=== PATIENT | male | born 1960 | race Caucasian/White ===

== ENCOUNTER 2017-06-30 11:38 | Emergency (ER) | payer OTHER ==
[~2017-06-30] VITALS: Ht 175.3 cm; Wt 70.0 kg
[~2017-06-30 11:38] MED LIST: ASPI81CH3 PO; BUPR-197 PO; DICL75 PO; FLUO-1 PO; LIDO5DIS35 TD; ROSU40 PO; SERO25TA PO; TRAM50 PO
[2017-06-30 12:02] VITALS: BP 175/100; PULSE 88; RESP 18; TEMP 98.1; O2SAT 98
[2017-06-30] MEDS ORDERED: PROZ40CA PO (12:07)
[2017-06-30] MEDS ORDERED: ROSU10 PO (12:07)
[2017-06-30] MEDS ORDERED: ASPI-516 CHEW (12:07)
[2017-06-30] MEDS ORDERED: SERO400T PO (12:07)
[2017-06-30 12:08] VITALS: BP 175/100; PULSE 88; RESP 18; TEMP 98.1; O2SAT 98
[2017-06-30] MEDS ORDERED: HALOPERIDOL LACTATE 5 MG/ML AMP IM ONE (12:15)
[2017-06-30] MEDS ORDERED: diphenhydrAMINE HCL 50 MG/ML VIAL IM ONE (12:15)
[2017-06-30] MEDS ORDERED: LORazepam 2 MG/ML VIAL IM ONE (12:15)
--- NOTE | 2017-06-30 12:17 | PD ---
HPI Chief Complaint: Psychiatric Symptoms Time Seen by Provider: 12:00 Travel History International Travel<30 days: No Contact w/Intl Traveler<30days: No Traveled to known affect area: No History of Present Illness HPI 56-year-old male brought in under the Vigil act for psychiatric symptoms. Patient states that he was recently in [facility] helping [employer] on his missiles with Darien Huffman. He denies suicidal or homicidal ideation. He states he has been taking his medication. He denies specific drug use. He denies medical problems this time. Patient has no known drug allergies. PFSH Past Medical History Hx Anticoagulant Therapy: Yes Bipolar Disorder: Yes (AND PARANOIA) Anxiety: Yes Depression: Yes High Cholesterol: Yes (BORDERLINE) Diabetes: No Diminished Hearing: No Psychiatric: Yes Past Surgical History Other Surgery: Yes (RIGHT KNEE ARTHOSCOPY) Family History Family Hypercholesterolemia: Yes Social History Alcohol Use: No Tobacco Use: Yes (1PPD) Substance Use: No Allergies-Medications (Allergen,Severity, Reaction): Coded Allergies: No Known Allergies (Unverified , 06/30/17) Reported Meds & Prescriptions Reported Meds & Active Scripts Active Reported Aspirin 81 Mg Chew 81 Mg CHEW DAILY Prozac (Fluoxetine HCl) 40 Mg Cap 40 Mg PO DAILY Crestor (Rosuvastatin Calcium) 10 Mg Tab 10 Mg PO DAILY Seroquel (Quetiapine Fumarate) 400 Mg Tab 400 Mg PO HS Review of Systems ROS Limitations: Psychotic General / Constitutional: No: Fever Eyes: No: Visual changes HENT: No: Headaches Cardiovascular: No: Chest Pain or Discomfort Respiratory: No: Shortness of Breath Gastrointestinal: No: Abdominal Pain Genitourinary: No: Dysuria Musculoskeletal: No: Pain Skin: No Rash Neurologic: No: Weakness Psychiatric: No: Depression Endocrine: No: Polydipsia Hematologic/Lymphatic: No: Easy Bruising Physical Exam Exam Limitations: Psychotic Narrative GENERAL: Patient appears agitated and manic. SKIN: Warm and mild diaphoresis. No obvious signs of trauma. HEAD: Atraumatic. Normocephalic. EYES: Pupils equal and round. No scleral icterus. No injection or drainage. ENT: No nasal bleeding or discharge. Mucous membranes pink and moist. [place] clear. NECK: Trachea midline. Supple. CARDIOVASCULAR: Regular rate and rhythm. RESPIRATORY: No accessory muscle use. Clear to auscultation. Breath sounds equal bilaterally. MUSCULOSKELETAL: Extremities without clubbing, cyanosis, or edema. No obvious deformities. NEUROLOGICAL: Awake and alert. No obvious cranial nerve deficits. Motor grossly within normal limits. Five out of 5 muscle strength in the arms and legs. Normal speech. PSYCHIATRIC: The patient appears manic, and making irrational claims. Data Data Last Documented VS Vital Signs Date Time Temp Pulse Resp B/P (MAP) Pulse Ox O2 Delivery O2 Flow Rate FiO2 06/30/17 12:08 98.1 88 18 175/100 (125) 98 Room Air Orders Orders Complete Blood Count With Diff (06/30/17 12:01) Comprehensive Metabolic Panel (06/30/17 12:01) Electrocardiogram (06/30/17 12:01) Psych Screen (06/30/17 12:01) Haloperidol Inj (Haldol Inj) (06/30/17 12:15) Lorazepam Inj (Ativan Inj) (06/30/17 12:15) Drug Screen, Random Urine (06/30/17 12:01) Alcohol (Ethanol) (06/30/17 12:01) Diphenhydramine Inj (Benadryl Inj) (06/30/17 12:15) Restraints Violent (06/30/17 12:06) Labs Laboratory Tests Test 06/30/17 12:15 06/30/17 12:20 White Blood Count 9.3 TH/MM3 Red Blood Count 5.31 MIL/MM3 Hemoglobin 15.2 GM/DL Hematocrit 46.6 % Mean Corpuscular Volume 87.7 FL Mean Corpuscular Hemoglobin 28.6 PG Mean Corpuscular Hemoglobin Concent 32.6 % Red Cell Distribution Width 14.3 % Platelet Count 148 TH/MM3 Mean Platelet Volume 10.9 FL Neutrophils (%) (Auto) 77.0 % Lymphocytes (%) (Auto) 15.6 % Monocytes (%) (Auto) 6.6 % Eosinophils (%) (Auto) 0.2 % Basophils (%) (Auto) 0.6 % Neutrophils # (Auto) 7.1 TH/MM3 Lymphocytes # (Auto) 1.5 TH/MM3 Monocytes # (Auto) 0.6 TH/MM3 Eosinophils # (Auto) 0.0 TH/MM3 Basophils # (Auto) 0.1 TH/MM3 CBC Comment DIFF FINAL Differential Comment Blood Urea Nitrogen 19 MG/DL Creatinine 1.10 MG/DL Random Glucose 112 MG/DL Total Protein 7.3 GM/DL Albumin 4.0 GM/DL Calcium Level 9.4 MG/DL Alkaline Phosphatase 62 U/L Aspartate Amino Transf (AST/SGOT) 40 U/L Alanine Aminotransferase (ALT/SGPT) 49 U/L Total Bilirubin 0.4 MG/DL Sodium Level 138 MEQ/L Potassium Level 4.0 MEQ/L Chloride Level 106 MEQ/L Carbon Dioxide Level 23.5 MEQ/L Anion Gap 9 MEQ/L Estimat Glomerular Filtration Rate 70 ML/MIN Ethyl Alcohol Level LESS THAN 3 MG/DL Urine Opiates Screen NEG Urine Barbiturates Screen NEG Urine Amphetamines Screen NEG Urine Benzodiazepines Screen NEG Urine Cocaine Screen NEG Urine Cannabinoids Screen POS MDM Medical Decision Making Medical Screen Exam Complete: Yes Emergency Medical Condition: Yes Medical Record Reviewed: Yes Differential Diagnosis Michelle. Psychosis. Possible substance abuse. Vigil act. Narrative Course Psychiatric labs ordered per protocol, including serum alcohol level. Physical restraints are ordered as well as chemical restraints including 1 mg lorazepam IM, 5 mg Haldol IM, 50 mg Benadryl IM. Psych screen is ordered. Labs are unremarkable. Urine is positive for marijuana. Patient is medically cleared for psychiatric evaluation. Diagnosis Primary Impression: Medical clearance for psychiatric admission Condition: Stable Bubba Solorzano Jun 30, 2017 12:17
[2017-06-30 12:40] LABS: AUTOMATED NEUTROPHIL # 7.1 TH/MM3 (1.8-7.7); BASOPHIL # 0.1 TH/MM3 (0-0.2); BASOPHIL % 0.6 % (0.0-2.0); EOSINOPHIL % 0.2 % (0.0-4.0); HEMATOCRIT 46.6 % (39.0-51.0); LYMPH % 15.6 % (9.0-44.0); LYMPHOCYTE # 1.5 TH/MM3 (1.0-4.8); MEAN CELL VOLUME 87.7 FL (80.0-100.0); MEAN CORPUSCULAR HEMOGLOBIN 28.6 PG (27.0-34.0); MEAN CORPUSCULAR HGB CONC 32.6 % (32.0-36.0); MONO % 6.6 % (0.0-8.0); PLATELET COUNT 148 TH/MM3 (150-450); RED BLOOD COUNT 5.31 MIL/MM3 (4.50-5.90); RED CELL DISTRIBUTION WIDTH 14.3 % (11.6-17.2); WHITE BLOOD COUNT 9.3 TH/MM3 (4.0-11.0)
[2017-06-30 12:42] LABS: HEMO FLAGS DIFF FINAL
[2017-06-30 12:54] LABS: ALT (GPT) 49 U/L (12-78); ANION GAP 9 MEQ/L (5-15); AST (GOT) 40 U/L (15-37); BICARBONATE 23.5 MEQ/L (21.0-32.0); BLOOD UREA NITROGEN 19 MG/DL (7-18); CHLORIDE 106 MEQ/L (98-107); GLOMERULAR FILTRATION RATE 70 ML/MIN (>89); SODIUM (NA) 138 MEQ/L (136-145)
[2017-06-30 12:55] LABS: ALCOHOL LESS THAN 3 MG/DL (0-5)
[2017-06-30 12:56] LABS: ALKALINE PHOSPHATASE 62 U/L (45-117); TOTAL BILIRUBIN ADULT 0.4 MG/DL (0.2-1.0)
[2017-06-30 15:30] VITALS: BP 111/69; PULSE 82; RESP 18; O2SAT 98
--- NOTE | 2017-06-30 17:04 | PD ---
Physical Exam Date Seen by Provider: Jun 30, 2017 Time Seen by Provider: 17:03 Narrative 56-year-old male previously Vigil acted and medically cleared for psychiatric evaluation has been seen by psychiatric services and cleared for discharge. Psychiatric no outpatient plan. Patient continues to be medically stable for discharge at this time. Data Data Last Documented VS Vital Signs Date Time Temp Pulse Resp B/P (MAP) Pulse Ox O2 Delivery O2 Flow Rate FiO2 06/30/17 15:30 82 18 111/69 (83) 98 Room Air 06/30/17 12:08 98.1 Orders Orders Complete Blood Count With Diff (06/30/17 12:01) Comprehensive Metabolic Panel (06/30/17 12:01) Electrocardiogram (06/30/17 12:01) Psych Screen (06/30/17 12:01) Haloperidol Inj (Haldol Inj) (06/30/17 12:15) Lorazepam Inj (Ativan Inj) (06/30/17 12:15) Drug Screen, Random Urine (06/30/17 12:01) Alcohol (Ethanol) (06/30/17 12:01) Diphenhydramine Inj (Benadryl Inj) (06/30/17 12:15) Restraints Violent (06/30/17 12:06) Diet Regular Basic (06/30/17 Dinner) Labs Laboratory Tests Test 06/30/17 12:15 06/30/17 12:20 White Blood Count 9.3 TH/MM3 Red Blood Count 5.31 MIL/MM3 Hemoglobin 15.2 GM/DL Hematocrit 46.6 % Mean Corpuscular Volume 87.7 FL Mean Corpuscular Hemoglobin 28.6 PG Mean Corpuscular Hemoglobin Concent 32.6 % Red Cell Distribution Width 14.3 % Platelet Count 148 TH/MM3 Mean Platelet Volume 10.9 FL Neutrophils (%) (Auto) 77.0 % Lymphocytes (%) (Auto) 15.6 % Monocytes (%) (Auto) 6.6 % Eosinophils (%) (Auto) 0.2 % Basophils (%) (Auto) 0.6 % Neutrophils # (Auto) 7.1 TH/MM3 Lymphocytes # (Auto) 1.5 TH/MM3 Monocytes # (Auto) 0.6 TH/MM3 Eosinophils # (Auto) 0.0 TH/MM3 Basophils # (Auto) 0.1 TH/MM3 CBC Comment DIFF FINAL Differential Comment Blood Urea Nitrogen 19 MG/DL Creatinine 1.10 MG/DL Random Glucose 112 MG/DL Total Protein 7.3 GM/DL Albumin 4.0 GM/DL Calcium Level 9.4 MG/DL Alkaline Phosphatase 62 U/L Aspartate Amino Transf (AST/SGOT) 40 U/L Alanine Aminotransferase (ALT/SGPT) 49 U/L Total Bilirubin 0.4 MG/DL Sodium Level 138 MEQ/L Potassium Level 4.0 MEQ/L Chloride Level 106 MEQ/L Carbon Dioxide Level 23.5 MEQ/L Anion Gap 9 MEQ/L Estimat Glomerular Filtration Rate 70 ML/MIN Ethyl Alcohol Level LESS THAN 3 MG/DL Urine Opiates Screen NEG Urine Barbiturates Screen NEG Urine Amphetamines Screen NEG Urine Benzodiazepines Screen NEG Urine Cocaine Screen NEG Urine Cannabinoids Screen POS MDM Medical Record Reviewed: Yes Supervised Visit with RADHA: Yes Narrative Course 56-year-old male previously Vigil acted and medically cleared for psychiatric evaluation has been seen by psychiatric services and cleared for discharge. Psychiatric no outpatient plan. Patient continues to be medically stable for discharge at this time. Diagnosis Primary Impression: Medical clearance for psychiatric admission Additional Instruction: Follow-up plan As per psychiatric staff. Disposition: DISCHARGE HOME Condition: Stable Bubba Solorzano Jun 30, 2017 17:04
--- NOTE | 2017-06-30 17:18 | PD ---
History of Present Illness Chief Complaint: Psychiatric Symptoms Time Seen by Provider: 16:45 Travel History International Travel<30 Days: No Contact w/Intl Traveler<30days: No Known affected area: No Legal Status Legal Status: Vigil Act Vigil Act Signed By: Michael Rosario History of Present Illness: History of Present Illness HPI 56-year-old male with reported history of bipolar disorder who is brought in under the Vigil act initiated by law enforcement . The Vigil act report alleges that the patient told his mother that he was going to kill himself by running his car into a tree. The patient reportedly had been at his mother's house and they had an argument and he admits to having made this statement in context of such argument. However, he states that it was in the heat of the moment and that he did not have any intent of harming himself. He also states" I don't need to get into any trouble and I don't need to be here. I have a court date on 07 July and I need to be there for that." In terms of allegedly comments that he made to the police and to ED provider that he had been in [facility] helping Maryjo Rodas patient also admits to having made those statements but that he was trying to get a reaction out of the police. Electronic medical record is reviewed. No previous contact with [facility]. Current toxicology is positive for cannabinoids. The patient is seen in [facility]. He is alert, oriented male dressed in [facility] with fair hygiene and grooming. He is calm and cooperative. His speech is clear, logical, goal-directed. There is no evidence of any psychosis , no angelina or hypomania. The patient does not appear to be internally preoccupied. He denies any suicidal or homicidal ideation, intent or plan. He is future oriented. He reports he sleeps well, eats well. Attention and concentration are adequate. In terms of psychiatric history he reports that his last psychiatric admission was at least 27 years ago. He is followed on an outpatient basis by Dr. COLÓN and he reports medication compliance. PFSH Past Medical History Hx Anticoagulant Therapy: Yes Bipolar Disorder: Yes (AND PARANOIA) Anxiety: Yes Depression: Yes High Cholesterol: Yes (BORDERLINE) Diabetes: No Diminished Hearing: No Psychiatric: Yes Influenza Vaccination: No Past Surgical History Other Surgery: Yes (RIGHT KNEE ARTHOSCOPY) Psychiatric History Psychiatric History Hx Psychiatric Treatment: 1 psychiatric hospitalization approximately 27 years ago. He has been followed on an outpatient basis and reports medication compliance. No history of previous suicide attempt. History of Inpatient Treatment: Yes Guns or firearms in home: No Social History Born in [place]. He is and has no children. He reports he lives by himself with his 2 dogs. He is on disability for his mental health history. Hx Alcohol Use: No Hx Tobacco Use: No (1PPD) Hx Substance Use: Yes Substance Use Type: Marijuana Other Substances Used: denied Hx of Substance Use Treatment: No Family Psychiatric History 1 nephew committed suicide many years ago. Allergies-Medications (Allergen,Severity, Reaction): Coded Allergies: No Known Allergies (Unverified , 06/30/17) Reported Meds & Prescriptions Reported Meds & Active Scripts Active Reported Aspirin 81 Mg Chew 81 Mg CHEW DAILY Prozac (Fluoxetine HCl) 40 Mg Cap 40 Mg PO DAILY Crestor (Rosuvastatin Calcium) 10 Mg Tab 10 Mg PO DAILY Seroquel (Quetiapine Fumarate) 400 Mg Tab 400 Mg PO HS Review of Systems Except as stated in HPI: all other systems reviewed are Neg Mental Status Examination Appearance: Appropriate Consciousness: Alert Orientation: x4 Motor Activity: Normal gait Speech: Unremarkable Language: Adequate Fund of Knowledge: Adequate Attention and Concentration: Adequate Memory: Unremarkable Mood: Appropriate Affect: Appropriate Thought Process & Associations: Intact Thought Content: Appropriate Hallucination Type: None Delusion Type: None Suicidal Ideation: No Suicidal Plan: No Suicidal Intention: No Homicidal Ideation: No Homicidal Plan: No Homicidal Intention: No Insight: Fair Judgment: Adequate [facility] Medical Decision Making Medical Record Reviewed: Yes Assessment/Plan 56-year-old male with history of bipolar disorder who presents under Vigil act after allegedly telling his mother he wanted to drive his car on to a tree. He states that he made this statement while he was involved in an argument with his mom. He made no attempt to harm himself. He has no previous suicidal attempts. He denies any current suicidal ideation, intent or plan. He is cognitively intact. He is future oriented and is afraid of being in trouble due to having an upcoming pretrial hearing on July 07. He states that he will be going into a drug treatment program after his court hearing. The patient is also worried about his 2 dogs at home. At this time he does not present any evidence of unstable mental illness. He is requesting to be discharge. He has established outpatient psychiatric treatment. Does not meet Vigil act criteria. Lift Vigil act. Psychiatrically clear for discharge. Orders Orders Complete Blood Count With Diff (06/30/17 12:01) Comprehensive Metabolic Panel (06/30/17 12:01) Electrocardiogram (06/30/17 12:01) Psych Screen (06/30/17 12:01) Haloperidol Inj (Haldol Inj) (06/30/17 12:15) Lorazepam Inj (Ativan Inj) (06/30/17 12:15) Drug Screen, Random Urine (06/30/17 12:01) Alcohol (Ethanol) (06/30/17 12:01) Diphenhydramine Inj (Benadryl Inj) (06/30/17 12:15) Restraints Violent (06/30/17 12:06) Diet Regular Basic (06/30/17 Dinner) Ed Discharge Order (06/30/17 17:04) Results Vital Signs Date Time Temp Pulse Resp B/P (MAP) Pulse Ox O2 Delivery O2 Flow Rate FiO2 06/30/17 15:30 82 18 111/69 (83) 98 Room Air 06/30/17 12:08 98.1 88 18 175/100 (125) 98 Room Air 06/30/17 12:08 88 18 06/30/17 12:02 98.1 88 18 175/100 (125) 98 Laboratory Tests Test 06/30/17 12:15 06/30/17 12:20 White Blood Count 9.3 Red Blood Count 5.31 Hemoglobin 15.2 Hematocrit 46.6 Mean Corpuscular Volume 87.7 Mean Corpuscular Hemoglobin 28.6 Mean Corpuscular Hemoglobin Concent 32.6 Red Cell Distribution Width 14.3 Platelet Count 148 Mean Platelet Volume 10.9 Neutrophils (%) (Auto) 77.0 Lymphocytes (%) (Auto) 15.6 Monocytes (%) (Auto) 6.6 Eosinophils (%) (Auto) 0.2 Basophils (%) (Auto) 0.6 Neutrophils # (Auto) 7.1 Lymphocytes # (Auto) 1.5 Monocytes # (Auto) 0.6 Eosinophils # (Auto) 0.0 Basophils # (Auto) 0.1 CBC Comment DIFF FINAL Differential Comment Blood Urea Nitrogen 19 Creatinine 1.10 Random Glucose 112 Total Protein 7.3 Albumin 4.0 Calcium Level 9.4 Alkaline Phosphatase 62 Aspartate Amino Transf (AST/SGOT) 40 Alanine Aminotransferase (ALT/SGPT) 49 Total Bilirubin 0.4 Sodium Level 138 Potassium Level 4.0 Chloride Level 106 Carbon Dioxide Level 23.5 Anion Gap 9 Estimat Glomerular Filtration Rate 70 Ethyl Alcohol Level LESS THAN 3 Urine Opiates Screen NEG Urine Barbiturates Screen NEG Urine Amphetamines Screen NEG Urine Benzodiazepines Screen NEG Urine Cocaine Screen NEG Urine Cannabinoids Screen POS Diagnosis Primary Impression: Medical clearance for psychiatric admission Additional Impression: Bipolar disorder Psychiatrically Cleared: Yes Additional Instructions: Follow-up plan As per psychiatric staff. Med/ Other Pt Specific Info: No Change to Meds Disposition: 01 DISCHARGE HOME Condition: Stable Problem Qualifiers Additional Impression: Bipolar disorder Qualified Codes: F31.70 - Bipolar disorder, currently in remission, most recent episode unspecified Vaishali Dover [employer] Jun 30, 2017 17:18
--- NOTE | 2017-06-30 22:02 | EKG ---
Date Performed: 06/30/2017 Time Performed: 12:23:13 PTAGE: 56 years EKG: Sinus rhythm NORMAL ECG PREVIOUS TRACING : 06/18/2011 12.38 Compared to prior tracing no significant change DOCTOR: Anneliese Siddiqui Interpretating Date/Time 06/30/2017 22:01:00
== END 2017-06-30 17:41 | disposition home or self-care (01) ==
LOC: NEPD 11:38 → NEPJ 17:41
DX: F31.70 Bipolar disorder, currently in remission, most recent episode unspecified (principal); F22 Delusional disorders; F41.9 Anxiety disorder, unspecified; E78.00 Pure hypercholesterolemia, unspecified; F17.200 Nicotine dependence, unspecified, uncomplicated; Z79.82 Long term (current) use of aspirin; Z79.899 Other long term (current) drug therapy
CPT/HCPCS: 80053; 80307; 85025; 93005; 96372; 99285; J1200; J1630; J2060